=== PATIENT | male | born 1975 | race Caucasian/White ===

== ENCOUNTER 2019-03-06 06:02 | Emergency (ER) | payer BC ==
[~2019-03-06] VITALS: Ht 180.3 cm; Wt 169.3 kg
[~2019-03-06 06:02] MED LIST: LAMO200T49 PO
[2019-03-06 06:04] VITALS: BP 141/75
--- NOTE | 2019-03-06 07:10 | NUR ---
Patient given discharge instructions and they have confirmed that they understand the instructions. Patient ambulatory with steady gait.
== END 2019-03-06 07:11 | disposition home or self-care (01) ==
LOC: ED 06:52
DX: S46.911A Strain of unspecified muscle, fascia and tendon at shoulder and upper arm level, right arm, initial encounter (principal); F17.200 Nicotine dependence, unspecified, uncomplicated; X58.XXXA Exposure to other specified factors, initial encounter; Y93.89 Activity, other specified; Y92.89 Other specified places as the place of occurrence of the external cause; Y99.8 Other external cause status
CPT/HCPCS: 99283

== ENCOUNTER 2019-05-19 09:30 | Emergency (ER) | payer BC ==
[~2019-05-19] VITALS: Ht 180.3 cm; Wt 171.3 kg
--- NOTE | 2019-05-19 09:56 | NUR ---
Pt ambulated back to room smooth and steady gait, at bedside, NAD, even and unlabored respirations, speaking in full sentences, call light within reach, changed into gown, sitting on Yash khanna MD at bedside performing assessment and discussing plan of care. Pt denies additional needs at this time. WCTM.
[2019-05-19 10:38] LABS: CULTURE INDICATED? NO; MICROSCOPIC NOT IND
[2019-05-19 10:41] LABS: BASOPHILS # (AUTO) 0.03 x10^3/uL (0-0.1); BASOPHILS % (AUTO) 1 % (0-1); EOSINOPHILS # (AUTO) 0.11 x10^3/uL (0-0.4); EOSINOPHILS % (AUTO) 2 % (1-7); LYMPHOCYTES # (AUTO) 1.74 x10^3/uL (1-3.4); LYMPHOCYTES % (AUTO) 27 % (22-44); MD NO; MEAN CORPUSCULAR HEMOGLOBIN 30.6 pg (27.5-34.5); MEAN CORPUSCULAR VOLUME 92.7 fL (81-97); MEAN PLATELET VOLUME 8.1 fL (7.4-10.4); MONOCYTES # (AUTO) 0.51 x10^3/uL (0.2-0.8); MONOCYTES % (AUTO) 8 % (2-9); NEUTROPHILS # (AUTO) 4.12 x10^3/uL (1.8-6.8); NEUTROPHILS % (AUTO) 63 % (42-75); PLATELET COUNT 270 x10^3/uL (130-400); RED BLOOD COUNT 4.66 x10^6/uL (4.38-5.82); RED CELL DISTRIBUTION WIDTH 13.6 % (9.4-14.8)
[2019-05-19 10:47] LABS: ALANINE AMINOTRANSFERASE 35 U/L (12-78); ALBUMIN 3.6 g/dL (3.4-5.0); ANION GAP 5 mmol/L (5-15); CALCIUM 9.3 mg/dL (8.5-10.1); CHLORIDE 106 mmol/L (98-107)
--- NOTE | 2019-05-19 10:47 | NUR ---
Pt resting in [place], [place], denies additional needs, call light within reach, WCTM.
[2019-05-19 10:50] LABS: ALKALINE PHOSPHATASE 68 U/L (45-117); BILIRUBIN,TOTAL 0.4 mg/dL (0.2-1.0); TOTAL PROTEIN 7.2 g/dL (6.4-8.2)
--- NOTE | 2019-05-19 10:51 | NUR ---
PT AMBULATED TO RESTROOM AND BACK WITH SMOOTH AND STEADY GAIT, RESTING [facility] [place], DENIES ADDITIONAL NEEDS, EVEN AND UNLABORED RESPIRATIONS.
--- NOTE | 2019-05-19 11:30 | NUR ---
Late Entry: [place], NAD, denies additional needs, call light within reach, at bs, waiting on biliary testing, WCTM.
--- NOTE | 2019-05-19 12:37 | NUR ---
Pt resting in [facility], [facility], denies additional needs, call light within reach, at bs, waiting on biliary testing, WCTM.
--- NOTE | 2019-05-19 12:48 | NUR ---
pt to HIDA testing. Eyes open, even and unlabored respirations, NAD.
[2019-05-19] MEDS ORDERED: SINCALIDE (KINEVAC) 5 MCG ONE (13:32)
--- NOTE | 2019-05-19 13:48 | NUR ---
PT in HIDA testing at this time.
--- NOTE | 2019-05-19 14:34 | NUR ---
pt back from HIDA test, denies additional needs, NAD, call light within reach, hooked back up to vitals machine, resting on gurney, even and unlabored respirations, conversing with RN in full sentences. WCTM.
[2019-05-19 14:35] VITALS: BP 140/65
[2019-05-19] MEDS ORDERED: VARE1TAB21 PO (14:36)
== END 2019-05-19 14:55 | disposition home or self-care (01) ==
LOC: ED 10:36
DX: R10.13 Epigastric pain (principal); R19.7 Diarrhea, unspecified; R10.11 Right upper quadrant pain; Z90.89 Acquired absence of other organs
CPT/HCPCS: 36415; 78227; 80053; 81003; 83690; 85025; 99285; A9537; J2805